=== PATIENT | male | born 1990 | race Caucasian/White ===

== ENCOUNTER 2017-12-11 10:17 | Emergency (ER) | payer SELFPAY ==
[~2017-12-11] VITALS: Ht 170.2 cm; Wt 98.0 kg
[2017-12-11] MEDS ORDERED: SODIUM CHLORIDE 0.9% 1,000 ML IV ONE ×2 (10:41→15:00)
[2017-12-11 11:33] LABS: BASOPHILS % 0.3 % (0.0-2.0); HEMATOCRIT. 41.6 % (42.0-52.0); HEMOGLOBIN. 14.8 g/dL (14.0-18.0); MEAN CORPUSCULAR HEMOGLOBIN 28.3 pg (28.0-32.0); MEAN CORPUSCULAR VOLUME 79.9 fL (80.0-94.0); MEAN PLATELET VOLUME 6.5 fl (7.4-10.4); MONOCYTES % 9.4 % (2.0-8.0); NEUTROPHILS % 74.3 % (40.0-76.0); PLATELET 134 x1000/uL (130-400); RED BLOOD CELL COUNT 5.21 mill/uL (4.7-6.1); RED CELL DISTRIBUTION WIDTH 16.7 % (11.6-14.6)
[2017-12-11 11:40] LABS: CHLORIDE 99 mEq/L (98-107)
[2017-12-11 11:41] LABS: INR 1.1; PROTHROMBIN TIME 11.4 sec (9.4-11.6)
[2017-12-11 11:44] LABS: ETHANOL BLOOD 247 mg/dL
[2017-12-11] MEDS ORDERED: LORAZEPAM 2MG/ML CPJ IV ONE (11:45)
[2017-12-11 11:50] LABS: BETA HYDROXYBUTYRATE 0.2 mMol/L (0.0-0.3)
[2017-12-11 12:01] LABS: CREATINE KINASE 1338 IU/L (39-308)
[2017-12-11] MEDS ORDERED: LORAZEPAM 2MG/ML CPJ IV SCH (16:15)
[2017-12-11 17:33] LABS: CHLORIDE 102 mEq/L (98-107)
[2017-12-11] MEDS ORDERED: CHLORDIAZEPOXIDE 25MG CAPSULE PO ONE (17:45)
[2017-12-11 17:52] LABS: CREATINE KINASE 1141 IU/L (39-308)
[2017-12-11 18:00] LABS: CLARITY URINE CLEAR (CLEAR); COLOR URINE YELLOW (YELLOW); KETONES URINE TRACE (NEGATIVE); LEUKOCYTE ESTERASE URINE NEGATIVE (NEGATIVE); NITRITE URINE NEGATIVE (NEGATIVE); OCCULT BLOOD URINE 1+ (NEGATIVE); PH URINE 6.5 (4.5-8.0); PROTEIN URINE 1+ (NEGATIVE); SPECIFIC GRAVITY URINE 1.012 (1.005-1.030)
[2017-12-11 18:22] LABS: *BENZODIAZEPINES SCREEN URINE NEGATIVE (NEGATIVE); *COCAINE SCREEN URINE NEGATIVE (NEGATIVE); METHADONE URINE SCREEN NEGATIVE (NEGATIVE)
[2017-12-11 18:23] LABS: *AMPHETAMINES SCREEN URINE NEGATIVE (NEGATIVE); *BARBITURATES SCREEN URINE NEGATIVE (NEGATIVE); CANNABINOID URINE SCREEN NEGATIVE (NEGATIVE); OPIATES URINE SCREEN NEGATIVE (NEGATIVE); PHENCYCLIDINE URINE SCREEN NEGATIVE (NEGATIVE)
[2017-12-11 21:00] VITALS: BP 122/68
== END 2017-12-11 22:24 | disposition home or self-care (01) ==
LOC: ER 10:45
DX: T51.2X1A Toxic effect of 2-Propanol, accidental (unintentional), initial encounter (principal); R41.82 Altered mental status, unspecified; T51.0X1A Toxic effect of ethanol, accidental (unintentional), initial encounter; F10.10 Alcohol abuse, uncomplicated; Y90.8 Blood alcohol level of 240 mg/100 ml or more; R03.0 Elevated blood-pressure reading, without diagnosis of hypertension; R00.0 Tachycardia, unspecified; R73.9 Hyperglycemia, unspecified; R94.5 Abnormal results of liver function studies; Z78.1 Physical restraint status; Y92.89 Other specified places as the place of occurrence of the external cause
CPT/HCPCS: 36415; 70450; 80048; 80053; 80305; 80307; 80329; 81003; 82010; 82550; 82962; 85025; 85610; 93005; 96361; 96374; 99285; G0482; J2060; J7030; Z7610